=== PATIENT | female | born 2000 | race Caucasian/White ===

== ENCOUNTER → 2022-09-03 | Outpatient (CLI) | payer BC | LOC: LAB FS 15:20 | PROVIDERS: ATTEND Obstetrics & Gynecology | DX: Z36.89 Encounter for other specified antenatal screening (principal) | CPT/HCPCS: 36415; 84702 ==

== ENCOUNTER → 2022-11-17 | Outpatient (CLI) | payer BC ==
--- NOTE | 2022-11-17 17:54 | Diagnostic Imaging Report ---
INDICATION: Supervision of normal . Anatomy scan. TECHNIQUE: Multiple real-time grayscale images were obtained over the gravid uterus. COMPARISON: None FINDINGS: A single live intrauterine gestation is visualized in breech presentation. No heart tones are obtained. The placenta is posterior/fundal and not low lying. SYLVESTER is normal measuring 13.6. The cervix is closed and measures 4.0 cm in length. The kidneys, bladder, stomach, brain, four-chamber heart, outflow tracts, three-vessel cord, upper and lower extremities, and cord insertion are visualized and have a normal sonographic appearance. The spine is partially visualized due to position. Biometrical measurements are as follows: Biparietal 4.5 cm, age 19 weeks 6 days. Head circumference 17.52 cm, age 20 weeks 1 days. Abdominal circumference 16.08 cm, age 21 weeks 2 days. Femur length 3.43 cm, age 20 weeks 6 days. Sonographic estimate age: 20 weeks 4 days. Sonographic estimated date of delivery: 04/02/2023. Estimated Weight: 382 gm (+/- 56 gm). LMP percentile: 69%. number: 1 of 1. IMPRESSION: 1. Single live intrauterine gestation measuring 20 weeks 4 days with an estimated due date of 04/02/2023. These are within range with the clinical dates. 2. Breech presentation. Recommend attention on follow-up. 3. No heart tones were documented by the paid search marketing analyst. 4. The spine is suboptimally visualized due to position. Recommend attention on follow-up. Dictated by: Dictated on workstation # [id number]
== END ==
LOC: RAD 12:00
PROVIDERS: ATTEND Nurse Practitioner Women's Health
DX: O32.1XX0 Maternal care for breech presentation, not applicable or unspecified (principal); Z3A.20 20 weeks gestation of pregnancy
CPT/HCPCS: 76805